=== PATIENT | female | born 1945 | race Caucasian/White ===

== ENCOUNTER 2024-07-28 12:50 | Emergency (ER) | payer OTHER ==
[2024-07-28] MEDS ORDERED: HYDROCODONE/APAP 7.5/325 MG TAB ONE (13:23)
[2024-07-28] MEDS ORDERED: KETOROLAC 30 MG/ML INJ ONE (13:23)
[2024-07-28 13:46] LABS: Specific Gravity 1.017 (1.005-1.030); Sqamous Epithelial <5 /HPF (None Seen); Urine Bacteria None Seen /HPF (<20); Urine Bilirubin NEGATIVE (Negative); Urine Blood 2+ (Negative); Urine Clarity Clear (Clear); Urine Color Light-Yellow (Yellow); Urine Culture Reflex Order NOT NEEDED; Urine Glucose NEGATIVE (Negative); Urine Ketones NEGATIVE (Negative); Urine Microscopic Reflex YN ORDER UMIC; Urine Mucus Slight /HPF (None Seen); Urine Nitrite NEGATIVE (Negative); Urine Protein NEGATIVE (Negative); Urine Urobilinogen Normal (Normal); Urine WBC <5 /HPF (<5)
--- NOTE | 2024-07-28 14:33 | RAD REPORT ---
EXAMINATION: CT Stone Protocol CLINICAL INDICATION: Female, 79 years old. FLANK PAIN TECHNIQUE: CT abdomen and pelvis was performed, without IV contrast, as per department protocol. Axia l, sagittal and coronal reconstructions were obtained. One or more of the following dose reduction techniques were used: Automated exposure control, adjustment of the mA and kV according to the patien t size, and iterative reconstruction. Unless otherwise specified, incidental findings do not require dedicated imaging follow-up. COMPARISON: No prior exam. FINDINGS: The lack of intravenous contrast limits the sensitivity of this exam for evaluation of solid visceral organs, vascular structures, and retroperitoneum. LOWER CHEST: The visualized lung bases are clear. LIVER: Normal in size and contour. No suspicious focal lesion. Fluid density lobulated cyst in the le ft lobe measuring 3.0 cm BILIARY SYSTEM: Large gallstone at the fundus, measuring 4.6 cm. No other suspicious abnormalities. SPLEEN: Normal size. No focal lesion. PANCREAS: No mass, ductal dilation, or sergey-pancreatic fluid. ADRENALS: Normal; no mass. KIDNEYS AND URETERS: Normal size and contour. No hydronephrosis. Bilateral cortical cysts, largest at the left upper pole measures 2.2 cm and at the right upper pole measures 2.7 cm. URINARY BLADDER: Normal contour. GASTROINTESTINAL TRACT: Moderate sliding hiatal hernia. No evidence of bowel obstruction, significant free fluid, free air or abscess. Moderate stool burden within the rectal bulb. Sigmoid diverticulosis without evidence of acute diverticulitis. APPENDIX: Normal appendix. LYMPH NODES: No lymphadenopathy. MUSCULOSKELETAL: Superior endplate compression deformity at L3 with mild comminution and mild prevert ebral edema. Buckled posterior cortex extending approximately for 6 mm along the thecal sac. ADDITIONAL FINDINGS: None. IMPRESSION: Superior endplate compression deformity at L3, may be acute/recent. Buckling of the posterior vertebr al body cortex, mildly effacing the ventral aspect of the canal. Please correlate for focal symptoms at that level. Other incidental findings including moderate stool burden in the rectal bulb, cholelithiasis, and a l arge gallstone with no CT findings to suggest acute cholecystitis.
--- NOTE | 2024-07-28 14:46 | EDPHYS ---
Physician Documentation [facility] Name: Sweta Anaya Age: 79 yrs Sex: Female : 1945 Arrival Date: 07/28/2024 Time: 12:50 Bed 9 Private MD: ED Physician Sera Rucker HPI: 07/28 13:31 This 79 yrs old Female presents to ER via Wheelchair with complaints of Low Back Pain. kb 13:32 Patient is a 79-year-old female who presents for low back pain that started 7 days ago. kb Denies injury or trauma. Denies urinary symptoms, nausea, vomiting, diarrhea. Denies fever. Daughter states the pain got severe 5 days ago so she took her to [facility] ER where they did x-rays and were told that it was just degenerative changes. Patient was given muscle relaxers and prednisone at that time. Patient followed up with PCP who ordered an outpatient urinalysis and an MRI. MRI scheduled for tomorrow and urinalysis was done and normal per daughter. Daughter brought her in today for continued pain and request MRI at this time.. Historical: - Allergies: 13:13 Sulfa (Sulfonamide Antibiotics); iw - PMHx: 13:13 Alzheimer's disease; iw - Immunization history:: Adult Immunizations. - Infectious Disease History:: Denies. - Social history:: Smoking status: . ROS: 13:30 Constitutional: As per HPI kb Exam: 13:30 Constitutional: This is a well developed, well nourished patient who is awake, alert, kb and in no acute distress. Head/Face: Normocephalic, atraumatic. ENT: Moist Mucous membranes Cardiovascular: Regular rate Respiratory: Respirations even and unlabored. No increased work of breathing. Talking in full sentences Abdomen/GI: Soft, non-tender. No distention. Reports palpation makes her feel like she needs to urinate Back: No spinal tenderness. No costovertebral tenderness. Full range of motion. Skin: Warm, dry with normal turgor. Normal color. MS/ Extremity: Pulses equal, no cyanosis. Neurovascular intact. Full, normal range of motion. Neuro: Awake and alert, GCS 15, oriented to person, place, time, and situation. Vital Signs: 13:10 BP 155 / 76; Pulse 103; Resp 18; Temp 97.6; Pulse Ox 99% on R/A; iw 14:58 BP 138 / 65; Pulse 81; Resp 17; Pulse Ox 99% ; Pain 5/10; ll1 14:58 Pain Scale: Adult ll1 MDM: 13:03 Medical Screening Exam initiated 13:31 Data reviewed: vital signs, nurses notes. 13:33 Historians other than the Patient: Daughter/Son: Daughter. ED course: Patient and kb daughter informed that we cannot do nonemergent MRIs in the emergency department. Recommended follow-up tomorrow for scheduled MRI. Patient has no abdominal tenderness, CVA tenderness, vertebral tenderness. Patient states the pain is just constant. Patient reported sensation to urinate when abdomen was palpated and has been to the restroom to urinate 3 times since she has been here. Will repeat urinalysis and get a CT stone. 07/28 13:18 Order name: Urinalysis w/ reflexes; Complete Time: 13:48 kb 07/28 13:24 Order name: CT Stone Protocol; Complete Time: 14:34 iw Administered Medications: 13:29 Drug: Hydrocodone-Acetaminophen PO (7.5 mg-325 mg) 1 tabs PO once Route: PO; ll1 14:59 Follow up: Response: No adverse reaction; Pain is decreased; RASS: Alert and Calm (0) ll1 13:29 Drug: Ketorolac IM 30 mg IM once Route: IM; Site: right gluteus; ll1 14:59 Follow up: Response: No adverse reaction; Pain is decreased ll1 Disposition: 17:29 Co-signature as Attending Physician, Sera Rucker MD I reviewed the patient's care gb1 provided by the Advanced Practice Provider and agree with the diagnosis and treatment plan. Disposition Summary: 07/28/24 14:45 Discharge Ordered Notes: Location: Home Condition: Stable kb Diagnosis - L3 compression fracture kb Followup: kb - With: Emergency Department - When: As needed - Reason: Worsening of condition Followup: kb - With: Private Physician - When: 2 - 3 days - Reason: Recheck today's complaints, Continuance of care, Re-evaluation by your physician Discharge Instructions: - Discharge Summary Sheet kb - Spinal Compression Fracture kb Forms: - Medication Reconciliation Form kb - Antibiotic Education kb - Prescription Opioid Use kb - Patient Portal Instructions kb - Leadership Thank You Letter kb Prescriptions: - acetaminophen-codeine 300-30 mg Oral tablet - take 1 tablet ORAL route every 4-6 hours As needed; 12 tablet; Refills: 0, kb Product Selection Permitted Signatures: Dispatcher [employer] Susanne Bui FNP-C FNP-Ckb Williams, Irene, RN RN iw Mary Mena RN RN ll1 Sera Rucekr MD MD gb1
--- NOTE | 2024-07-28 14:46 | ER ---
Nurse's Notes [facility] Name: Sweta Anaya Age: 79 yrs Sex: Female : 1945 Arrival Date: 07/28/2024 Time: 12:50 Bed 9 Private MD: Diagnosis: L3 compression fracture Presentation: 07/28 13:10 Chief complaint: Patient states: low back pain for about a week, was seen at [facility] and iw they did an xray and urine, pain is not better, is due for MRI tomorrow. Coronavirus screen: At this time, the client does not indicate any symptoms associated with coronavirus-19. Ebola Screen: No symptoms or risks identified at this time. Initial Sepsis Screen: Does the patient meet any 2 criteria? No. Patient's initial sepsis screen is negative. Does the patient have a suspected source of infection? No. Patient's initial sepsis screen is negative. Risk Assessment: Do you want to hurt yourself or someone else? Patient reports no desire to harm self or others. 13:10 Method Of Arrival: Wheelchair iw 13:10 Acuity: ALON 3 iw 13:11 Onset of symptoms was July 21, 2024. Triage Assessment: 13:14 General: Appears in no apparent distress. Behavior is calm. Pain: Complains of pain in iw lumbar area, left low back and right low back. Neuro: Level of Consciousness is awake, alert, obeys commands, Moves all extremities. Historical: - Allergies: 13:13 Sulfa (Sulfonamide Antibiotics); iw - PMHx: 13:13 Alzheimer's disease; iw - Immunization history:: Adult Immunizations. - Infectious Disease History:: Denies. - Social history:: Smoking status: . Screenin:57 [facility] ED Fall Risk Assessment (Adult) History of falling in the last 3 months, ll1 including since admission Yes- single mechanical fall (1 pt) Confusion or Disorientation No (0 pts) Intoxicated or Sedated No (0 pts) Impaired Gait No (0 pts) Mobility Assist Device Used No (0 pt) Altered Elimination No (0 pt) Score/Fall Risk Level 0 - 2 = Low Risk Maintained a safe environment, Hourly rounding (assess needs \T\ fall precautionary measures) done. Abuse screen: Denies threats or abuse. Nutritional screening: No deficits noted. Tuberculosis screening: No symptoms or risk factors identified. Assessment: 13:29 Reassessment: No changes from previously documented assessment. Patient and/or family ll1 updated on plan of care and expected duration. Pain level reassessed. 14:01 Reassessment: No changes from previously documented assessment. Patient and/or family ll1 updated on plan of care and expected duration. Pain level reassessed. Patient is alert, oriented x 3, equal unlabored respirations, skin warm/dry/pink. 14:57 Reassessment: No changes from previously documented assessment. Patient and/or family ll1 updated on plan of care and expected duration. Pain level reassessed. Patient is alert, oriented x 3, equal unlabored respirations, skin warm/dry/pink. Patient states symptoms have improved. Vital Signs: 13:10 BP 155 / 76; Pulse 103; Resp 18; Temp 97.6; Pulse Ox 99% on R/A; iw 14:58 BP 138 / 65; Pulse 81; Resp 17; Pulse Ox 99% ; Pain 5/10; ll1 14:58 Pain Scale: Adult ll1 ED Course: 12:57 Patient arrived in ED. al6 13:03 Susanne Moreno FNP-C is [facility]. kb 13:03 Sera Rucker MD is Attending Physician. kb 13:11 Triage completed. iw 13:13 Arm band placed on. iw 13:30 Urinalysis w/ reflexes Sent. ll1 13:51 CT Stone Protocol In Process Unspecified. EDMS 14:01 Patient placed in an exam room, in a wheelchair. ll1 14:58 No provider procedures requiring assistance completed. Patient did not have IV access ll1 during this emergency room visit. 14:59 Patient has correct armband on for positive identification. Bed in low position. ll1 Provided Education on: ER procedures and process. Cardiac monitoring not applicable on this patient. Administered Medications: 13:29 Drug: Hydrocodone-Acetaminophen PO (7.5 mg-325 mg) 1 tabs PO once Route: PO; ll1 14:59 Follow up: Response: No adverse reaction; Pain is decreased; RASS: Alert and Calm (0) ll1 13:29 Drug: Ketorolac IM 30 mg IM once Route: IM; Site: right gluteus; ll1 14:59 Follow up: Response: No adverse reaction; Pain is decreased ll1 Medication: 14:59 VIS not applicable for this client. ll1 Outcome: 14:45 Discharge ordered by . reuben 14:58 Discharged to home via wheelchair, ll1 14:58 Condition: stable 14:58 Discharge instructions given to patient, family, Instructed on discharge instructions, follow up and referral plans. no drinking with medication, no driving heavy equipment, medication usage, Demonstrated understanding of instructions, follow-up care, medications, Prescriptions given X 1, 15:00 Patient left the ED. ll1 Signatures: Dispatcher [employer] EDSusanne Romero, BAR BACK-C BAR BACK-CkDeisy Bruce RN RN iw Mary Mena RN RN ll1 Alexa Dean6 Corrections: (The following items were deleted from the chart) 13:12 13:10 Chief complaint: Patient states: low back pain yeny saini
[2024-07-28 15:31] VITALS: TEMP 97.6; O2SAT 99
[2024-07-28 15:33] VITALS: BP 138/65
== END 2024-07-28 15:00 | disposition home or self-care (01) ==
LOC: ER 12:50
DX: S32.030A Wedge compression fracture of third lumbar vertebra, initial encounter for closed fracture (principal); G30.9 Alzheimer's disease, unspecified; F02.80 Dementia in other diseases classified elsewhere, unspecified severity, without behavioral disturbance, psychotic disturbance, mood disturbance, and anxiety
CPT/HCPCS: 74176; 76377; 81001

== ENCOUNTER 2024-08-15 15:27 | Emergency (ER) | payer OTHER ==
[2024-08-15] MEDS ORDERED: KETOROLAC 30 MG/ML INJ ONE (16:37)
[2024-08-15] MEDS ORDERED: dexAMETHasone 10 MG/ML VIAL ONE (16:37)
[2024-08-15 17:17] LABS: Specific Gravity 1.026 (1.005-1.030); Urine Bacteria 20-50 /HPF (<20); Urine Bilirubin 3+ (Negative); Urine Blood Negative (Negative); Urine Clarity Extremely Turbid (Clear); Urine Color Yellow (Yellow); Urine Crystals Unidentified Few /HPF (None Seen); Urine Culture Reflex Order NOT NEEDED; Urine Glucose NEGATIVE (Negative); Urine Ketones NEGATIVE (Negative); Urine Microscopic Reflex YN ORDER UMIC; Urine Mucus 1+ /HPF (None Seen); Urine Nitrite NEGATIVE (Negative); Urine Protein TRACE (Negative); Urine RBC <5 /HPF (None Seen); Urine Urobilinogen 1+ (Normal); Urine WBC <5 /HPF (<5); Urine pH 5.5 (5.0-7.0)
--- NOTE | 2024-08-15 17:37 | RAD REPORT ---
EXAM: CT PELVIS WITHOUT CONTRAST HISTORY: PAIN COMPARISON: None TECHNIQUE: Multiple contiguous axial images were obtained and a CT of the pelvis with IV contrast. Sa gittal and coronal reformats were performed. One or more of the following dose reduction techniques were used: Automated exposure control, adjustment of the mA and/or kV according to patient size, and/ or iterative reconstruction. FINDINGS: Diffuse osteopenia. No fracture of either proximal femur is seen.Sacroiliac joints appear i ntact bilaterally. Moderate lower lumbar degenerative changes. Sigmoid diverticulosis coli without diverticulitis.. No pelvic ascites or mass. The soft tissues surrounding the pelvis are unremarkable. IMPRESSION: Diffuse osteopenia without acute process seen.
--- NOTE | 2024-08-15 17:40 | EDPHYS ---
Physician Documentation [facility] Name: Sweta Anaya Age: 79 yrs Sex: Female : 1945 Arrival Date: 08/15/2024 Time: 15:27 Bed 17 Private MD: ED Physician Brayden Patiño HPI: 08/15 15:58 This 79 yrs old Female presents to ER via Unassigned with complaints of back pain. kb 15:58 Patient is a 79-year-old female who presents for low back pain mostly on the left. kb Patient was diagnosed with an L3 compression fracture 1 month ago, had an MRI that confirmed the fracture. States the pain got worse today and radiates to left buttock and leg. Denies urinary symptoms, fever, new injury. Historical: - Allergies: 16:11 Sulfa (Sulfonamide Antibiotics); ld1 - PMHx: 16:11 Alzheimer's disease; ld1 - Immunization history:: Adult Immunizations up to date. - Infectious Disease History:: Denies. - Social history:: Smoking status: Patient denies any tobacco usage or history of. ROS: 16:00 Constitutional: As per HPI kb Exam: 17:33 Constitutional: This is a well developed, well nourished patient who is awake, alert, kb and in no acute distress. Head/Face: Normocephalic, atraumatic. ENT: Moist Mucous membranes Cardiovascular: Regular rate Respiratory: Respirations even and unlabored. No increased work of breathing. Talking in full sentences Abdomen/GI: Soft, non-tender. No distention Back: No spinal tenderness. No costovertebral tenderness. Full range of motion. Skin: Warm, dry with normal turgor. Normal color. MS/ Extremity: Pulses equal, no cyanosis. Neurovascular intact. Full, normal range of motion. Neuro: Awake and alert, GCS 15, oriented to person, place Vital Signs: 16:18 BP 153 / 87; Pulse 97; Resp 18; Temp 97.6(TE); Pulse Ox 100% on R/A; Height 5 ft. 4 in. ld1 ; Pain 7/10; 16:57 BP 153 / 114; Pulse 93; Resp 18; Pulse Ox 100% on R/A; ld1 16:57 Pain 8/10; ld1 18:00 BP 146 / 99; Pulse 91; Resp 18; Pulse Ox 100% on R/A; Pain 7/10; ld1 16:18 Pain Scale: Adult ld1 16:57 Pain Scale: Adult ld1 18:00 Pain Scale: Adult ld1 MDM: 15:37 Medical Screening Exam initiated kb 17:33 Data reviewed: vital signs, nurses notes. Historians other than the Patient: EMS: [facility]. Daughter/Son: daughter states she is concerned that pt fractured her pelvis or hip. States she does not recall a fall, but she didn't know how she got the L3 fracture either and denied a fall then. . 17:38 Differential diagnosis: fracture, sciatica, uti. Counseling: I had a detailed kb discussion with the patient and/or guardian regarding the historical points, exam findings, and any diagnostic results supporting the discharge/admit diagnosis, lab results, radiology results, the need for outpatient follow up, a family practitioner, to return to the emergency department if symptoms worsen or persist or if there are any questions or concerns that arise at home. 17:47 External Records Reviewed: Outpatient radiology: MRI lumbar spine results reviewed. Pt kb has follow up with Dr Walker on 08/27/24. 08/15 16:21 Order name: Urinalysis w/ reflexes; Complete Time: 17:19 kb 08/15 17:03 Order name: CT Pelvis wo Cont; Complete Time: 17:38 kb Administered Medications: 16:21 Not Given (Physician Discretion): [id number] mg IM once kb 16:56 Drug: Decadron - Dexamethasone IVP 10 mg IVP once Route: IVP; Site: right hand; ld1 18:00 Follow up: Response: No adverse reaction ld1 16:56 Drug: Ketorolac IVP 15 mg IVP once Route: IVP; Site: right hand; ld1 18:00 Follow up: Response: No adverse reaction ld1 18:00 Drug: Macrobid PO 100 mg PO once; administer with food Route: PO; ld1 18:00 Follow up: Response: No adverse reaction ld1 Disposition Summary: 08/15/24 17:39 Discharge Ordered Notes: Location: Home kb Condition: Stable kb Diagnosis - Low back pain kb - UTI/ Urinary tract infection, site not specified kb Followup: kb - With: Emergency Department - When: As needed - Reason: Worsening of condition Followup: kb - With: Private Physician - When: 2 - 3 days - Reason: Recheck today's complaints, Continuance of care, Re-evaluation by your physician Discharge Instructions: - Discharge Summary Sheet kb - Musculoskeletal Pain kb - Urinary Tract Infection, Adult, [id number] kb Forms: - Medication Reconciliation Form kb - Antibiotic Education kb - Prescription Opioid Use kb - Patient Portal Instructions kb - Leadership Thank You Letter kb Prescriptions: - acetaminophen-codeine 300-30 mg Oral tablet - take 1 tablet ORAL route every 6 hours As needed as needed for pain; 12 tablet; kb Refills: 0, Product Selection Permitted - Macrobid 100 mg Oral Capsule - take 1 capsule ORAL route every 12 hours for 10 days; 20 capsule; Refills: 0, kb Product Selection Permitted Signatures: Dispatcher [employer] Susanne Bui FNP-C FNP-Ckb Sims, Lauren, RN RN ld1
--- NOTE | 2024-08-15 17:40 | ER ---
Nurse's Notes [facility] Name: Sweta Anaya Age: 79 yrs Sex: Female : 1945 Arrival Date: 08/15/2024 Time: 15:27 Bed 17 Private MD: Diagnosis: Low back pain;UTI/ Urinary tract infection, site not specified Presentation: 08/15 16:12 Chief complaint: EMS states: toned out to to patient home for chronic back pain. ld1 Coronavirus screen: At this time, the client does not indicate any symptoms associated with coronavirus-19. Ebola Screen: No symptoms or risks identified at this time. Risk Assessment: Do you want to hurt yourself or someone else? Patient reports no desire to harm self or others. Onset of symptoms was August 15, 2024 at 16:13. 16:12 Method Of Arrival: EMS: [facility] ld1 16:12 Acuity: ALON 3 ld1 16:18 Initial Sepsis Screen: Does the patient meet any 2 criteria? No. Patient's initial ld1 sepsis screen is negative. Does the patient have a suspected source of infection? No. Patient's initial sepsis screen is negative. Triage Assessment: 16:12 General: Appears in no apparent distress. comfortable, Behavior is calm, cooperative, ld1 appropriate for age. EENT: No signs and/or symptoms were reported regarding the EENT system. Neuro: Level of Consciousness is awake, alert, obeys commands, Oriented to person, place, time, situation. Cardiovascular: Capillary refill < 3 seconds Patient's skin is warm and dry. Respiratory: Airway is patent Respiratory effort is even, unlabored. GI: Abdomen is flat, non-distended. : No signs and/or symptoms were reported regarding the genitourinary system. Derm: No signs and/or symptoms reported regarding the dermatologic system. Musculoskeletal: No signs and/or symptoms reported regarding the musculoskeletal system. 16:12 Pain: Complains of pain in left lower back Pain does not radiate. Pain currently is 7 ld1 out of 10 on a pain scale. Quality of pain is described as throbbing, Pain began suddenly, Is continuous. Historical: - Allergies: 16:11 Sulfa (Sulfonamide Antibiotics); ld1 - PMHx: 16:11 Alzheimer's disease; ld1 - Immunization history:: Adult Immunizations up to date. - Infectious Disease History:: Denies. - Social history:: Smoking status: Patient denies any tobacco usage or history of. Screenin:57 [facility] ED Fall Risk Assessment (Adult) History of falling in the last 3 months, ld1 including since admission Yes- single mechanical fall (1 pt) Confusion or Disorientation Yes (5 pts) Intoxicated or Sedated No (0 pts) Impaired Gait Yes (1 pt) Mobility Assist Device Used No (0 pt) Altered Elimination No (0 pt) Score/Fall Risk Level 3 or more points = High Risk Oriented to surroundings, Maintained a safe environment, Assessed \T\ reinforced patient's understanding of fall precautions, Provided non-skid footwear, Hourly rounding (assess needs \T\ fall precautionary measures) done. Abuse screen: Denies threats or abuse. Denies injuries from another. Nutritional screening: No deficits noted. Tuberculosis screening: No symptoms or risk factors identified. Assessment: 16:57 Reassessment: See triage assessment. ld1 16:57 Reassessment: ERP at bedside discussing patient care with family and patient. ld1 18:00 Reassessment: Patient appears in no apparent distress at this time. No changes from ld1 previously documented assessment. Patient and/or family updated on plan of care and expected duration. Pain level reassessed. Vital Signs: 16:18 BP 153 / 87; Pulse 97; Resp 18; Temp 97.6(TE); Pulse Ox 100% on R/A; Height 5 ft. 4 in. ld1 ; Pain 7/10; 16:57 BP 153 / 114; Pulse 93; Resp 18; Pulse Ox 100% on R/A; ld1 16:57 Pain 8/10; ld1 18:00 BP 146 / 99; Pulse 91; Resp 18; Pulse Ox 100% on R/A; Pain 7/10; ld1 16:18 Pain Scale: Adult ld1 16:57 Pain Scale: Adult ld1 18:00 Pain Scale: Adult ld1 ED Course: 15:36 Patient arrived in ED. kb 15:36 Susanne Moreno [facility]-C [facility]. kb 15:36 Brayden Patiño MD is Attending Physician. kb 16:11 Alicia Thornton RN is Primary Nurse. ld1 16:12 Arm band placed on right wrist. ld1 16:13 Triage completed. ld1 16:56 Urinalysis w/ reflexes Sent. ld1 16:57 Patient has correct armband on for positive identification. Placed in gown. Bed in low ld1 position. Call light in reach. Side rails up X2. Adult w/ patient. Pulse ox on. NIBP on. Door closed. Noise minimized. Warm blanket given. 16:57 Maintain EMS IV. Dressing intact. Good blood return noted. Site clean \T\ dry. Gauge \T\ ld 1 site: 20g RW. 17:27 CT Pelvis wo Cont In Process Unspecified. EDMS 18:00 No provider procedures requiring assistance completed. IV discontinued, intact, ld1 bleeding controlled, No redness/swelling at site. Administered Medications: 16:21 Not Given (Physician Discretion): mg IM once kb 16:56 Drug: Decadron - Dexamethasone IVP 10 mg IVP once Route: IVP; Site: right hand; ld1 18:00 Follow up: Response: No adverse reaction ld1 16:56 Drug: Ketorolac IVP 15 mg IVP once Route: IVP; Site: right hand; ld1 18:00 Follow up: Response: No adverse reaction ld1 18:00 Drug: Macrobid PO 100 mg PO once; administer with food Route: PO; ld1 18:00 Follow up: Response: No adverse reaction ld1 Medication: 16:57 VIS not applicable for this client. ld1 Outcome: 17:39 Discharge ordered by . kb 18:00 Discharged to home via wheelchair, with family, ld1 18:00 Condition: stable 18:00 Discharge instructions given to patient, family, Instructed on discharge instructions, follow up and referral plans. medication usage, Demonstrated understanding of instructions, follow-up care, medications, Prescriptions given X 3, 18:01 Patient left the ED. ld1 Signatures: Dispatcher [employer] Susanne Bui, INES SILVESTRE-Alicia Emerson RN RN ld1
[2024-08-17 06:55] VITALS: TEMP 97.6; O2SAT 100
[2024-08-17 06:58] VITALS: BP 146/99
== END 2024-08-15 18:01 | disposition home or self-care (01) ==
LOC: ER 15:27
DX: N39.0 Urinary tract infection, site not specified (principal)
CPT/HCPCS: 81001; 72192; 96375; 96374; 99284; J1100